=== PATIENT | female | born 1965 | race Caucasian/White ===

== ENCOUNTER → 2016-06-11 | Outpatient (CLI) | payer BC | LOC: RAD 10:31 | DX: M25.511 Pain in right shoulder (principal); M06.9 Rheumatoid arthritis, unspecified; Z98.890 Other specified postprocedural states | CPT/HCPCS: 73030 ==

== ENCOUNTER → 2016-06-24 | Outpatient (CLI) | payer BC | LOC: EMI 09:53 | DX: M25.511 Pain in right shoulder (principal); Z98.890 Other specified postprocedural states; R93.7 Abnormal findings on diagnostic imaging of other parts of musculoskeletal system | CPT/HCPCS: 73221 ==

== ENCOUNTER → 2020-03-16 | Outpatient (CLI) | payer BC, OTHER ==
[~2020-03-16] VITALS: Ht 162.6 cm; Wt 108.9 kg
[~2020-03-16] MED LIST: ASPIRIN EC81 MG PO; AUGMENTIN 875-1 EACH PO; BACLOFEN20 MG PO; BUSPAR 5MG TABLE5 MG PO; BYDUREON P2 MG/0.65 SC; CELEBREX100 MG PO; COLCHICINE 0.60.6 MG PO; DEXAMETHASONE1 MG PO; DULOXETINE HCL60 MG PO; FENOFIBRATE PO; FOLIC ACID 1 MG1 MG PO; GABAPENTIN300 MG PO; GLUCOPHAGE850 MG PO; HUMALOG SC; HUMALOG100 UNIT/1 SC; HUMULIN R500 UNIT/1 SC; HYDROCHLOROTHIA25 MG PO; HYDROCODON-ACE1 EAC2 PO; IBUPROFEN800 MG PO; IPRAT-ALBUT 0.5-3 ML INH; LASIX20 MG PO; LEVOFLOXACIN750 MG PO; METHOTREXA25 MG/1 M6 SC; NORCO 7.5-3251 EACH PO; ONDANSETRON HCL8 MG PO; ORENCIA125 MG/1 M IV; PLAQUENIL 200200 MG PO; PRINIVIL5 MG PO; SINGULAIR10 MG PO; SUDAFED 30 MG T30 MG PO; SYNTHROID175 MCG PO; TENORMIN 25 MG25 MG PO; TORADOL 10 MG T10 MG PO; TOUJEO MAX300 UNIT/1 SC; VITAMIN D350000 UNIT PO; VOLTAREN GEL TD; WELLBUTRIN XL300 M1 PO
== END ==
LOC: OPSV 12:00
DX: M05.9 Rheumatoid arthritis with rheumatoid factor, unspecified (principal)
CPT/HCPCS: 96365; 96375; J0129; J1720

== ENCOUNTER → 2020-03-20 | Outpatient (CLI) | payer BC, OTHER | LOC: DTC 14:04 | DX: E11.65 Type 2 diabetes mellitus with hyperglycemia (principal) | CPT/HCPCS: G0108 ==

== ENCOUNTER → 2020-04-18 | Outpatient (CLI) | payer BC, OTHER ==
[~2020-04-18] VITALS: Ht 162.6 cm; Wt 108.9 kg
== END ==
LOC: OPSV 04-13 12:00
DX: M05.9 Rheumatoid arthritis with rheumatoid factor, unspecified (principal)
CPT/HCPCS: 96365; 96375; J0129; J1720

== ENCOUNTER 2020-04-25 09:14 | Inpatient (IN) | payer BC, OTHER ==
[~2020-04-25] VITALS: Ht 162.6 cm; Wt 99.3 kg
[~2020-04-25 09:14] MED LIST changes: -ASPIRIN EC81 MG PO; -AUGMENTIN 875-1 EACH PO; -DEXAMETHASONE1 MG PO; -HUMALOG100 UNIT/1 SC; -HUMULIN R500 UNIT/1 SC; -IPRAT-ALBUT 0.5-3 ML INH; -LASIX20 MG PO; -LEVOFLOXACIN750 MG PO; -METHOTREXA25 MG/1 M6 SC; -ORENCIA125 MG/1 M IV; -SUDAFED 30 MG T30 MG PO
[2020-04-25 10:24] LABS: HEMOGLOBIN 15.2 gm/dl (12.3-15.3); RED BLOOD COUNT 5.27 M/UL (4.00-5.10); WHITE BLOOD COUNT 19.6 K/UL (4.5-11.0)
[2020-04-25 11:03] LABS: BUN/CREATININE RATIO 21 (0-10)
[2020-04-25] MEDS ORDERED: LASIX20 MG PO (15:46)
[2020-04-25] MEDS ORDERED: HUMULIN R500 UNIT/1 SC (16:39)
[2020-04-25] MEDS ORDERED: HUMALOG100 UNIT/1 SC (16:41)
[2020-04-26 02:29] LABS: RED BLOOD COUNT 4.86 M/UL (4.00-5.10); WHITE BLOOD COUNT 15.5 K/UL (4.5-11.0)
[2020-04-26 02:52] LABS: BUN/CREATININE RATIO 27 (0-10)
[2020-04-27 04:42] LABS: RED BLOOD COUNT 4.61 M/UL (4.00-5.10); WHITE BLOOD COUNT 18.3 K/UL (4.5-11.0)
[2020-04-27 05:04] LABS: BUN/CREATININE RATIO 26 (0-10)
[2020-04-28 05:10] LABS: HEMOGLOBIN 12.2 gm/dl (12.3-15.3); RED BLOOD COUNT 4.33 M/UL (4.00-5.10); WHITE BLOOD COUNT 14.5 K/UL (4.5-11.0)
[2020-04-28 05:39] LABS: BUN/CREATININE RATIO 28 (0-10)
[2020-04-29 02:15] LABS: HEMOGLOBIN 11.5 gm/dl (12.3-15.3); RED BLOOD COUNT 4.16 M/UL (4.00-5.10); WHITE BLOOD COUNT 11.1 K/UL (4.5-11.0)
[2020-04-29 02:40] LABS: BUN/CREATININE RATIO 30 (0-10)
[2020-04-29] MEDS ORDERED: ASPIRIN EC81 MG PO (13:00)
[2020-04-29] MEDS ORDERED: DEXAMETHASONE1 MG PO (13:00)
[2020-04-30 03:44] LABS: HEMOGLOBIN 12.4 gm/dl (12.3-15.3); RED BLOOD COUNT 4.4 M/UL (4.00-5.10); WHITE BLOOD COUNT 13.1 K/UL (4.5-11.0)
[2020-04-30 04:08] LABS: BUN/CREATININE RATIO 25 (0-10)
[2020-04-30] MEDS ORDERED: LEVOFLOXACIN750 MG PO (13:04)
[2020-05-04] MEDS ORDERED: HYDROCHLOROTHIA25 MG PO (15:51)
[2020-05-10] MEDS ORDERED: SUDAFED 30 MG T30 MG PO (07:00)
[2020-05-10] MEDS ORDERED: ORENCIA125 MG/1 M IV (07:00)
[2020-05-10] MEDS ORDERED: METHOTREXA25 MG/1 M6 SC (07:02)
== END 2020-04-30 15:22 | disposition home or self-care (01) | DRG 177 ==
LOC: ER1 09:14 → CDU 15:29 → MED SURG 4 15:29
PROVIDERS: Internal Medicine; Physician Assistant; ADMIT Internal Medicine
PROC: 8E0ZXY6 Isolation (ICD-10-PCS; principal; 2020-04-25)
PROC: XW033E5 Introduction of Remdesivir Anti-infective into Peripheral Vein, Percutaneous Approach, New Technology Group 5 (ICD-10-PCS; 2020-04-25)
DX: U07.1 COVID-19 (principal); J12.82 Pneumonia due to coronavirus disease 2019; J96.01 Acute respiratory failure with hypoxia; J15.9 Unspecified bacterial pneumonia; I31.3 Pericardial effusion (noninflammatory); J84.9 Interstitial pulmonary disease, unspecified; N30.00 Acute cystitis without hematuria; E87.1 Hypo-osmolality and hyponatremia; R07.9 Chest pain, unspecified; E66.01 Morbid (severe) obesity due to excess calories; M10.9 Gout, unspecified; E80.6 Other disorders of bilirubin metabolism; E03.9 Hypothyroidism, unspecified; E78.5 Hyperlipidemia, unspecified; M06.9 Rheumatoid arthritis, unspecified; E11.65 Type 2 diabetes mellitus with hyperglycemia; E86.0 Dehydration; I10 Essential (primary) hypertension; E87.6 Hypokalemia; Z79.899 Other long term (current) drug therapy; Z79.82 Long term (current) use of aspirin; Z79.4 Long term (current) use of insulin; Z90.710 Acquired absence of both cervix and uterus; Z90.49 Acquired absence of other specified parts of digestive tract; Z82.49 Family history of ischemic heart disease and other diseases of the circulatory system; Z68.37 Body mass index [BMI] 37.0-37.9, adult; K76.0 Fatty (change of) liver, not elsewhere classified; M19.90 Unspecified osteoarthritis, unspecified site
CPT/HCPCS: ECHO; 36415; 36600; 71045; 71046; 71250; 76705; 80048; 80053; 80202; 81001; 82550; 82553; 82803; 82962; 83605; 83690; 83735; 83880; 84439; 84443; 84484; 85025; 85379; 85610; 85652; 85730; 86140; 87040; 87070; 87205; 93005; 93306; 94640; 94664; 94760; 96365; 96366; 96367; 96368; 96375; 99285; J0696; J1100; J1650; J2270; J2405; J2543; J3370; J3480; J7030; J7060; J7070; U0002

== ENCOUNTER 2020-05-10 12:44 | Inpatient (IN) | payer BC, OTHER ==
[~2020-05-10] VITALS: Ht 160 cm; Wt 90.7 kg
[~2020-05-10 12:44] MED LIST changes: +ASPIRIN EC81 MG PO; +DEXAMETHASONE1 MG PO; +HUMALOG100 UNIT/1 SC; +HUMULIN R500 UNIT/1 SC; +LASIX20 MG PO; +LEVOFLOXACIN750 MG PO; +METHOTREXA25 MG/1 M6 SC; +ORENCIA125 MG/1 M IV; +SUDAFED 30 MG T30 MG PO
[2020-05-10 13:48] LABS: HEMOGLOBIN 12.5 gm/dl (12.3-15.3); RED BLOOD COUNT 4.32 M/UL (4.00-5.10); WHITE BLOOD COUNT 24.3 K/UL (4.5-11.0)
[2020-05-10 14:19] LABS: BUN/CREATININE RATIO 30 (0-10)
[2020-05-11 04:34] LABS: HEMOGLOBIN 10.3 gm/dl (12.3-15.3); RED BLOOD COUNT 3.67 M/UL (4.00-5.10); WHITE BLOOD COUNT 17.6 K/UL (4.5-11.0)
[2020-05-11 04:48] LABS: BUN/CREATININE RATIO 23 (0-10)
[2020-05-12 04:03] LABS: BUN/CREATININE RATIO 18 (0-10)
[2020-05-12 10:05] LABS: HEMOGLOBIN 9.4 gm/dl (12.3-15.3); RED BLOOD COUNT 3.37 M/UL (4.00-5.10)
[2020-05-12 10:06] LABS: WHITE BLOOD COUNT 11.6 K/UL (4.5-11.0)
[2020-05-13 04:30] LABS: RED BLOOD COUNT 3.97 M/UL (4.00-5.10); WHITE BLOOD COUNT 7.5 K/UL (4.5-11.0)
[2020-05-13 04:41] LABS: BUN/CREATININE RATIO 23 (0-10)
[2020-05-14 04:29] LABS: HEMOGLOBIN 10.3 gm/dl (12.3-15.3); RED BLOOD COUNT 3.59 M/UL (4.00-5.10)
[2020-05-14 04:51] LABS: BUN/CREATININE RATIO 22 (0-10)
[2020-05-15 02:26] LABS: HEMOGLOBIN 10.4 gm/dl (12.3-15.3); RED BLOOD COUNT 3.69 M/UL (4.00-5.10)
[2020-05-15 02:33] LABS: WHITE BLOOD COUNT 8.8 K/UL (4.5-11.0)
[2020-05-15 02:49] LABS: BUN/CREATININE RATIO 21 (0-10)
[2020-05-15] MEDS ORDERED: AUGMENTIN 875-1 EACH PO (14:27)
[2020-05-15] MEDS ORDERED: IPRAT-ALBUT 0.5-3 ML INH (15:00)
== END 2020-05-15 17:10 | disposition home or self-care (01) | DRG 871 ==
LOC: ER1 12:44 → PROG CARE 15:01 → CDU 15:01 → PROG CARE 05-11 16:40
PROVIDERS: Emergency Medicine; Internal Medicine Infectious Disease; ADMIT Internal Medicine
DX: A41.9 Sepsis, unspecified organism (principal); J15.9 Unspecified bacterial pneumonia; G93.41 Metabolic encephalopathy; E87.1 Hypo-osmolality and hyponatremia; E11.65 Type 2 diabetes mellitus with hyperglycemia; Z86.16 Personal history of COVID-19; K76.0 Fatty (change of) liver, not elsewhere classified; E03.9 Hypothyroidism, unspecified; E66.01 Morbid (severe) obesity due to excess calories; I10 Essential (primary) hypertension; M06.9 Rheumatoid arthritis, unspecified; E78.5 Hyperlipidemia, unspecified; Z90.49 Acquired absence of other specified parts of digestive tract; Z90.710 Acquired absence of both cervix and uterus; Z68.35 Body mass index [BMI] 35.0-35.9, adult; Z98.51 Tubal ligation status; Z82.49 Family history of ischemic heart disease and other diseases of the circulatory system; Z83.3 Family history of diabetes mellitus; Z80.9 Family history of malignant neoplasm, unspecified; Z79.82 Long term (current) use of aspirin; Z79.890 Hormone replacement therapy; Z79.4 Long term (current) use of insulin; Z79.899 Other long term (current) drug therapy
CPT/HCPCS: 36415; 36600; 70450; 71045; 80053; 80202; 80307; 81001; 82009; 82436; 82550; 82553; 82728; 82803; 82962; 83036; 83605; 83735; 83874; 83880; 84133; 84300; 84484; 85025; 85379; 85610; 86140; 87040; 87081; 87086; 93005; 94640; 94664; 94760; 96365; 96375; 96376; 99285; G0378; J1650; J2185; J2270; J3370; J7030; J7070; Q9967; U0002

== ENCOUNTER → 2020-10-04 | Outpatient (CLI) | payer BC, OTHER ==
[~2020-10-04] VITALS: Ht 162.6 cm; Wt 108.9 kg
[~2020-10-04] MED LIST changes: +AUGMENTIN 875-1 EACH PO; +IPRAT-ALBUT 0.5-3 ML INH
== END ==
LOC: OPSV 07:00
DX: M06.9 Rheumatoid arthritis, unspecified (principal)
CPT/HCPCS: 96375; 96413; 96415; J2930; J7030; J9312

== ENCOUNTER → 2020-10-16 | Outpatient (CLI) | payer BC, OTHER | LOC: MAMO 07:19 | DX: Z12.31 Encounter for screening mammogram for malignant neoplasm of breast (principal); R92.1 Mammographic calcification found on diagnostic imaging of breast | CPT/HCPCS: 77063; 77067 ==

== ENCOUNTER → 2020-10-25 | Outpatient (CLI) | payer BC ==
[~2020-10-25] VITALS: Ht 162.6 cm; Wt 108.9 kg
== END ==
LOC: OPSV 08:30
DX: M06.9 Rheumatoid arthritis, unspecified (principal)
CPT/HCPCS: 96375; 96413; 96415; J2930; J7030; J9312

== ENCOUNTER 2021-01-16 14:25 | Emergency (ER) | payer OTHER | END 2021-01-16 17:47 | disposition home or self-care (01) | LOC: ER1 14:25 | DX: S13.4XXA Sprain of ligaments of cervical spine, initial encounter (principal); E11.9 Type 2 diabetes mellitus without complications; V49.9XXA Car occupant (driver) (passenger) injured in unspecified traffic accident, initial encounter | CPT/HCPCS: 70450; 72125; 96372; 99283; J1885 ==

== ENCOUNTER → 2021-04-10 | Outpatient (CLI) | payer BC, OTHER | LOC: EXRD 09:15 | DX: N39.0 Urinary tract infection, site not specified (principal); N32.89 Other specified disorders of bladder | CPT/HCPCS: 76775; 76857 ==

== ENCOUNTER → 2021-05-30 | Outpatient (CLI) | payer BC, OTHER ==
[~2021-05-30] VITALS: Ht 162.6 cm; Wt 108.9 kg
== END ==
LOC: OPSV 05-21 09:00
DX: M06.9 Rheumatoid arthritis, unspecified (principal)
CPT/HCPCS: 96375; 96413; 96415; J1200; J2930; J7030; J9312

== ENCOUNTER → 2021-06-13 | Outpatient (CLI) | payer BC, OTHER ==
[~2021-06-13] VITALS: Ht 162.6 cm; Wt 108.9 kg
== END ==
LOC: OPSV 07:28
DX: M06.09 Rheumatoid arthritis without rheumatoid factor, multiple sites (principal)
CPT/HCPCS: 96375; 96413; 96415; J1200; J2930; J7030; J9312

== ENCOUNTER → 2021-06-24 | Outpatient (CLI) | payer OTHER ==
[2021-06-24 13:10] LABS: HEMOGLOBIN 15.4 gm/dl (12.3-15.3); RED BLOOD COUNT 5.01 M/UL (4.00-5.10)
[2021-06-24 13:30] LABS: BUN/CREATININE RATIO 17 (0-10)
== END ==
LOC: LAB 12:03
PROVIDERS: Nurse Practitioner Family
DX: Z00.00 Encounter for general adult medical examination without abnormal findings (principal)
CPT/HCPCS: 36415; 80053; 80061; 82043; 83036; 84439; 84443; 85025